=== PATIENT | male | born 1940 | race Native Hawaiian/Other Pacific Islander ===

== ENCOUNTER 2021-09-24 11:20 | Inpatient (IN) ==
[2021-09-24] MEDS ORDERED: Naloxone 0.4 MG/ML INJ IVP PRN (13:45)
[2021-09-24] MEDS ORDERED: Acetaminophen 325 MG TABLET PO PRN (14:16)
[2021-09-24] MEDS ORDERED: Perflutren Lipid Microsphere 1.3 ML in 0.9 % Sodium Chloride 8.7 ML IVP PRN (14:25)
[2021-09-24] MEDS ORDERED: Iopamidol - 370 500 ML MLS IVP ONE (14:25)
[2021-09-24] MEDS: 0.9 % Sodium Chloride 1,000 ML IVC SCH (17:35)
[2021-09-24] MEDS: *HR* Heparin 5,000 UNIT/ML VIAL SQ SCH (18:19)
[2021-09-24 19:09] LABS: Adenovirus Not Detected (Not Detect); Coronavirus 229E Not Detected (Not Detect)
[2021-09-24 19:10] LABS: Coronavirus HKU1 Not Detected (Not Detect); Coronavirus NL63 Not Detected (Not Detect); Coronavirus OC43 Not Detected (Not Detect)
[2021-09-24 19:11] LABS: Bordetella Pertussis Not Detected (Not Detect); Chlamydophila pneumoniae Not Detected (Not Detect); Human Metapneumovirus Not Detected (Not Detect); Human Rhinovirus/Enterovirus Not Detected (Not Detect); Influenza A Subtype 2009 H1 Not Detected (Not Detect); Influenza B Not Detected (Not Detect); Mycoplasma pneumoniae Not Detected (Not Detect); Parainfluenza Virus 1 Not Detected (Not Detect); Parainfluenza Virus 2 Not Detected (Not Detect); Parainfluenza Virus 3 Not Detected (Not Detect); Parainfluenza Virus 4 Not Detected (Not Detect); Respiratory Syncytial Virus Not Detected (Not Detect); SARS-CoV-2 DETECTED (Not Detect)
[2021-09-24] MEDS ORDERED: QUEtiapine Fumarate 25 MG TABLET PO SCH (21:00)
[2021-09-24] MEDS: levETIRAcetam 250 MG TABLET PO SCH (21:37)
[2021-09-25 05:12] LABS: Basophils % 0.3 %; Hematocrit 41.8 % (37.5-50.1); Hemoglobin 13.2 g/dL (12.9-16.9); Immature Granulocytes % 0.3 % (0-4); Lymphocytes # 0.8 K/mcL (0.6-4.6); Lymphocytes % 22.8 %; Mean Corpuscular HGB Conc 31.6 g/dL (31.6-35.5); Mean Corpuscular Hemoglobin 29.9 pg (28.0-33.3); Mean Corpuscular Volume 94.6 fL (83.0-100.0); Mean Platelet Volume 11.1 fL (9.4-12.4); Monocytes # 0.8 K/mcL (0.0-1.3); Monocytes % 21.7 %; Platelet Count 144 K/mcL (140-400); Red Blood Count 4.42 M/mcL (4.19-5.50); Segmented Neutrophils % 54.9 %; White Blood Count 3.6 K/mcL (4.3-11.1)
[2021-09-25] MEDS: *HR* Heparin 5,000 UNIT/ML VIAL SQ SCH ×2 (05:56→17:20)
[2021-09-25 06:12] LABS: Alanine Aminotransferase 12 Units/L (7-52); Albumin 3.9 g/dL (3.5-5.7); Albumin/Globulin Ratio 1.4 (1.1-2.2); Alkaline Phosphatase 77 Units/L (34-104); Aspartate Amino Transferase 24 Units/L (13-39); BUN/Creatinine Ratio 15 (6-26); Bilirubin,Total 0.5 mg/dL (0.3-1.0); Blood Urea Nitrogen 13 mg/dL (8-23); Calcium 8.2 mg/dL (8.6-10.3); Carbon Dioxide 22 mEq/L (23-29); Chloride 103 mEq/L (98-107); Chol/HDL Ratio 3.3 (0-4.9); Cholesterol 152 mg/dL (< 200); Globulin 2.8 g/dL (2.4-3.5); Glucose 81 mg/dL (70-105); HDL Cholesterol 46 mg/dL (40-59); LDL Cholesterol,Calculated 93 mg/dL (< 100); Osmolality,Calculated 277 (280-300); Sodium 134 mEq/L (136-145); Total Protein 6.7 g/dL (6.4-8.9); Triglycerides 66 mg/dL (< 150); eGFR For African Americans > 60 (> 60); eGFR For Non-African Americans > 60 (> 60)
[2021-09-25] MEDS: 0.9 % Sodium Chloride 1,000 ML IVC SCH (09:54)
[2021-09-25 10:45] LABS: Estimated Average Glucose 120 mg/dl; Hemoglobin A1C 5.8 %
[2021-09-25] MEDS: Aspirin 81 MG TAB.CHEW PO SCH (14:34)
[2021-09-25] MEDS: levETIRAcetam 500 MG/5 ML UDC PO SCH ×2 (14:34→20:37)
[2021-09-25] MEDS: levETIRAcetam 250 MG TABLET PO SCH (14:35)
[2021-09-25 20:32] LABS: Folate > 22.3 ng/mL (3.0-16.0); Vitamin B12 995 pg/mL (250-1100)
[2021-09-25] MEDS: QUEtiapine Fumarate 25 MG TABLET PO SCH (20:37)
[2021-09-25] MEDS: traZODone 50 MG TABLET PO SCH (20:37)
[2021-09-26] MEDS: *HR* Heparin 5,000 UNIT/ML VIAL SQ SCH ×2 (06:26→17:17)
[2021-09-26] MEDS ORDERED: Carbidopa/Levodopa 25/100 TABLET PO SCH (08:00)
[2021-09-26] MEDS: levETIRAcetam 500 MG/5 ML UDC PO SCH ×2 (08:29→20:23)
[2021-09-26] MEDS: Aspirin 81 MG TAB.CHEW PO SCH (08:30)
[2021-09-26 15:12] LABS: Hematocrit 39.8 % (37.5-50.1); Hemoglobin 13.3 g/dL (12.9-16.9); Mean Corpuscular HGB Conc 33.4 g/dL (31.6-35.5); Mean Corpuscular Hemoglobin 30.4 pg (28.0-33.3); Mean Corpuscular Volume 90.9 fL (83.0-100.0); Mean Platelet Volume 10.2 fL (9.4-12.4); Platelet Count 161 K/mcL (140-400); Red Blood Count 4.38 M/mcL (4.19-5.50); Red Cell Distribution Width 14.6 % (11.5-14.5); White Blood Count 3.3 K/mcL (4.3-11.1)
[2021-09-26 15:33] LABS: BUN/Creatinine Ratio 21 (6-26); Blood Urea Nitrogen 17 mg/dL (8-23); Calcium 8.3 mg/dL (8.6-10.3); Carbon Dioxide 25 mEq/L (23-29); Chloride 103 mEq/L (98-107); Glucose 104 mg/dL (70-105); Osmolality,Calculated 280 (280-300); Potassium 3.6 mEq/L (3.5-5.1); Sodium 134 mEq/L (136-145); eGFR For African Americans > 60 (> 60); eGFR For Non-African Americans > 60 (> 60)
[2021-09-26] MEDS: QUEtiapine Fumarate 25 MG TABLET PO SCH (20:23)
[2021-09-26] MEDS: traZODone 50 MG TABLET PO SCH (20:23)
[2021-09-27] MEDS: *HR* Heparin 5,000 UNIT/ML VIAL SQ SCH ×2 (06:20→17:16)
[2021-09-27] MEDS: levETIRAcetam 500 MG/5 ML UDC PO SCH ×3 (09:12→21:09)
[2021-09-27] MEDS: Aspirin 81 MG TAB.CHEW PO SCH (09:13)
[2021-09-27] MEDS: traZODone 50 MG TABLET PO SCH (21:09)
[2021-09-27] MEDS: QUEtiapine Fumarate 25 MG TABLET PO SCH (21:09)
[2021-09-28] MEDS: *HR* Heparin 5,000 UNIT/ML VIAL SQ SCH (06:35)
[2021-09-28] MEDS: levETIRAcetam 500 MG/5 ML UDC PO SCH (09:33)
[2021-09-28] MEDS: Aspirin 81 MG TAB.CHEW PO SCH (09:38)
[2021-09-28 10:42] VITALS: BP 107/65; PULSE 70; TEMP 98.6; O2SAT 94
== END 2021-09-28 16:37 | disposition home health service (06) | DRG 56 ==
LOC: 3BNU → SUATTDRO 13:05
PROVIDERS: ADMIT General Practice; ATTEND Internal Medicine